=== PATIENT | female | born 1985 | race African-American/Black ===

== ENCOUNTER → 2022-12-20 | Outpatient (CLI) | payer OTHER ==
[~2022-12-20] MED LIST: GLUCAGON INJ 1MG VIAL As Ordered ONE; ISOVUE-370 76% 100ML VIAL As Ordered ONE; NEULUMEX 0.1% SUSPENSION 450ML BOTTLE (FORMERLY VOLUMEN) As Ordered ONE; PLEC3TAB PO
== END ==
LOC: M RAD 09:18
PROVIDERS: ATTEND Internal Medicine Gastroenterology
DX: D37.8 Neoplasm of uncertain behavior of other specified digestive organs (principal); D3A.012 Benign carcinoid tumor of the ileum; R93.89 Abnormal findings on diagnostic imaging of other specified body structures
CPT/HCPCS: 74177; J1610; Q9967

== ENCOUNTER 2022-12-29 07:08 | Day surgery (SDC) | payer OTHER ==
[~2022-12-29] VITALS: Ht 157.5 cm; Wt 69.3 kg
[~2022-12-29 07:08] MED LIST changes: -GLUCAGON INJ 1MG VIAL As Ordered ONE; -ISOVUE-370 76% 100ML VIAL As Ordered ONE; +LIDOCAINE 2% 100MG/5ML SDV (FOR ANES.) As Ordered ONE; -NEULUMEX 0.1% SUSPENSION 450ML BOTTLE (FORMERLY VOLUMEN) As Ordered ONE; +NS 1,000 ML IV ONE; +propofoL 200 MG/20 ML VIAL As Ordered ONE
[2022-12-29] MEDS ORDERED: propofoL 200 MG/20 ML VIAL As Ordered ONE (07:09)
[2022-12-29 08:41] VITALS: TEMP 97.9
[2022-12-29 09:12] VITALS: BP 106/59; O2SAT 100
== END 2022-12-29 09:18 | disposition home or self-care (01) ==
LOC: M OPP 07:08
PROVIDERS: ATTEND Internal Medicine Gastroenterology
DX: C7A.019 Malignant carcinoid tumor of the small intestine, unspecified portion (principal); D64.9 Anemia, unspecified; K21.9 Gastro-esophageal reflux disease without esophagitis; Z91.018 Allergy to other foods; Z79.899 Other long term (current) drug therapy

== ENCOUNTER 2023-03-22 08:31 | Inpatient (IN) | payer OTHER ==
[~2023-03-22] VITALS: Ht 157.5 cm; Wt 72.2 kg
[2023-03-22] VITALS (7 sets, daily range): BP systolic 108–121; BP diastolic 62–77; TEMP 97–97.9; O2SAT 95–98
[~2023-03-22 08:31] MED LIST changes: +ACETAMINOPHEN *IV* 1,000 MG in IV 0 EA IV ONE; +CelecoXIB 400 MG CAP PO ONE; +GABAPENTIN 300 MG CAP PO ONE; +HEPARIN SOD (PORCINE) 5000UNITS/ML 1ML VIAL/SYRINGE SQ ONE; +MIDAZOLAM INJ 2MG/2ML VIAL As Ordered ONE; -NS 1,000 ML IV ONE; +ONDANSETRON 4MG 2ML VIAL As Ordered ONE; +ROCURONIUM BROMIDE 50MG/5ML VIAL As Ordered ONE; +VITA1CAP25 PO; +ceFAZolin SOD 2 GM in IV 1 EA IV ONE; +fentaNYL 250 MCG/5 ML INJECTION As Ordered ONE; +metroNIDAZOLE 500 MG in IV 1 EA IV ONE
[2023-03-22] MEDS ORDERED: LR 1,000 ML IV SCH ×2 (08:50→12:40)
[2023-03-22] MEDS ORDERED: KETAMINE HCL 200MG/20ML VIAL As Ordered ONE (09:55)
[2023-03-22] MEDS ORDERED: dexmedeTOMIDine (4MCG/ML)200MCG/50ML BTL (PRECEDEX) As Ordered ONE (10:00)
[2023-03-22] MEDS ORDERED: ROCURONIUM BROMIDE 50MG/5ML VIAL As Ordered ONE (10:07)
[2023-03-22] MEDS ORDERED: ACETAMINOPHEN 1000MG 100ML IV BAG As Ordered ONE (10:07)
[2023-03-22] MEDS ORDERED: GLYCOPYRROLATE INJ 0.2 MG/ML 2 ML VIAL As Ordered ONE (10:27)
[2023-03-22] MEDS ORDERED: INDOCYANINE GREEN 25MG VIAL (IC-GREEN) As Ordered ONE (10:44)
[2023-03-22] MEDS ORDERED: HYDROmorphone HCL 2MG/ML 1ML VIAL As Ordered ONE (11:34)
[2023-03-22] MEDS ORDERED: SUGAMMADEX SODIUM 500 MG/5 ML VIAL (BRIDION) As Ordered ONE (12:01)
[2023-03-22] MEDS ORDERED: ONDANSETRON 4MG 2ML VIAL IV PRN ×2 (12:40→12:50)
[2023-03-22] MEDS ORDERED: PROMETHAZINE 25MG/ML 1ML VIAL IV PRN (12:50)
[2023-03-22] MEDS ORDERED: ACETAMINOPHEN TAB 650MG DOSE (2X325MG) PO PRN (12:50)
[2023-03-22] MEDS ORDERED: METOCLOPRAMIDE INJ 10MG/2ML VIAL IV PRN (12:50)
[2023-03-22] MEDS ORDERED: traMADol 50 MG TAB PO PRN (12:50)
[2023-03-22] MEDS: fentaNYL 100 MCG/2 ML INJECTION IV PRN ×4 (12:55→13:23)
[2023-03-22] MEDS: KETOROLAC 30 MG/ML 1ML VIAL IV SCH ×2 (13:55→20:14)
[2023-03-22] MEDS: KCL 20MEQ IN D5/0.45NS 1000ML 1,000 ML IV SCH (15:17)
[2023-03-22] MEDS ORDERED: MED REC IN PROGRESS XX SCH (15:30)
[2023-03-22] MEDS ORDERED: HOME MED LIST COMPLETE! XX SCH (15:40)
[2023-03-22] MEDS: FAMOTIDINE 20 MG TAB PO SCH (20:14)
[2023-03-23] VITALS (7 sets, daily range): BP systolic 105–123; BP diastolic 70–86; TEMP 97.3–99; O2SAT 96–99
[2023-03-23] MEDS: KETOROLAC 30 MG/ML 1ML VIAL IV SCH ×4 (02:06→20:15)
[2023-03-23] MEDS: KCL 20MEQ IN D5/0.45NS 1000ML 1,000 ML IV SCH (04:20)
[2023-03-23 06:25] LABS: BASO % 0.2 % (0.0-1.0); HEMATOCRIT 35.1 % (36.0-47.0); LYMPH # 0.9 10^3/uL (1.5-5.0); LYMPH % 7.7 % (24.0-44.0); MEAN CORPUSCULAR HEMOGLOBIN 29.3 pg (27.0-33.0); MEAN CORPUSCULAR HGB CONC 34.2 g/dl (32.0-36.5); MEAN CORPUSCULAR VOLUME 85.8 fl (80.0-96.0); MONO # 0.6 10^3/uL (0.0-0.8); MONO % 5.1 % (2.0-8.0); NEUTROPHILS # 10.4 10^3/uL (1.5-8.5); NEUTROPHILS % 86.7 % (36.0-66.0); PLATELET COUNT, AUTOMATED 197 10^3/uL (150-450); RED BLOOD COUNT 4.09 10^6/uL (4.00-5.40)
[2023-03-23 06:47] LABS: BLOOD UREA NITROGEN 6 MG/DL (9-23); CALCIUM LEVEL 8.3 MG/DL (8.5-10.1); CARBON DIOXIDE LEVEL 28 MMOL/L (20-31); CHLORIDE LEVEL 110 MMOL/L (98-107); CREATININE FOR GFR 0.58 MG/DL (0.55-1.30); GLOMERULAR FILTRATION RATE > 60.0 (>60); GLUCOSE, FASTING 100 MG/DL (60-100); POTASSIUM SERUM 4.3 MMOL/L (3.5-5.1); SODIUM LEVEL 143 MMOL/L (136-145)
[2023-03-23] MEDS: FAMOTIDINE 20 MG TAB PO SCH ×2 (08:53→20:15)
[2023-03-23] MEDS: ENOXAPARIN 40MG/0.4ML SYRINGE (J1650 PER 10MG) SC SCH (08:54)
[2023-03-23] MEDS: oxyCODONE 5MG TAB PO PRN ×2 (11:16→18:21)
[2023-03-24 02:11] VITALS: BP 113/73; TEMP 98.4; O2SAT 99
[2023-03-24] MEDS: KETOROLAC 30 MG/ML 1ML VIAL IV SCH ×2 (02:13→10:23)
[2023-03-24 06:10] VITALS: BP 121/78; TEMP 97.9; O2SAT 99
[2023-03-24] MEDS: ENOXAPARIN 40MG/0.4ML SYRINGE (J1650 PER 10MG) SC SCH (09:00)
[2023-03-24] MEDS ORDERED: HYDR-3713 PO ×2 (09:29→10:08)
[2023-03-24] MEDS: FAMOTIDINE 20 MG TAB PO SCH (10:24)
== END 2023-03-24 12:10 | disposition home or self-care (01) | DRG 331 ==
LOC: M OR 08:31 → M MS5PR 14:30
PROVIDERS: ADMIT Surgery; ATTEND Surgery
PROC: 0DTC4ZZ Resection of Ileocecal Valve, Percutaneous Endoscopic Approach (ICD-10-PCS; 2023-03-22)
PROC: 8E0W4CZ Robotic Assisted Procedure of Trunk Region, Percutaneous Endoscopic Approach (ICD-10-PCS; 2023-03-22)
PROC: 0DTB4ZZ Resection of Ileum, Percutaneous Endoscopic Approach (ICD-10-PCS; principal; 2023-03-22 10:30)
DX: C17.2 Malignant neoplasm of ileum (principal); D55.0 Anemia due to glucose-6-phosphate dehydrogenase [G6PD] deficiency; D57.3 Sickle-cell trait; Z91.010 Allergy to peanuts

== ENCOUNTER 2023-05-31 15:54 | Outpatient (CLI) | payer OTHER ==
[2023-05-31 14:15] VITALS: BP 122/74; O2SAT 100
[~2023-05-31 15:54] MED LIST changes: -ACETAMINOPHEN *IV* 1,000 MG in IV 0 EA IV ONE; -CelecoXIB 400 MG CAP PO ONE; +FOLI5INJ2 SC; -GABAPENTIN 300 MG CAP PO ONE; -HEPARIN SOD (PORCINE) 5000UNITS/ML 1ML VIAL/SYRINGE SQ ONE; +HYDR-3713 PO; -LIDOCAINE 2% 100MG/5ML SDV (FOR ANES.) As Ordered ONE; -MIDAZOLAM INJ 2MG/2ML VIAL As Ordered ONE; -ONDANSETRON 4MG 2ML VIAL As Ordered ONE; -ROCURONIUM BROMIDE 50MG/5ML VIAL As Ordered ONE; -ceFAZolin SOD 2 GM in IV 1 EA IV ONE; -fentaNYL 250 MCG/5 ML INJECTION As Ordered ONE; -metroNIDAZOLE 500 MG in IV 1 EA IV ONE; -propofoL 200 MG/20 ML VIAL As Ordered ONE
[2023-05-31] MEDS ORDERED: NS 1,000 ML IV SCH (16:00)
[2023-05-31] MEDS: diphenhydrAMINE 25MG CAP PO ONE (16:09)
[2023-05-31] MEDS: ACETAMINOPHEN TAB 650MG DOSE (2X325MG) PO ONE (16:09)
[2023-05-31] MEDS: dexAMETHasone 4 MG TAB PO ONE (16:10)
[2023-05-31] MEDS: FERRIC CARBOXYMALTOSE INJ 750 MG in NS 250 ML (>50kg) IV ONE (16:42)
[2023-05-31 17:45] VITALS: BP 124/78; O2SAT 100
== END 2023-05-31 16:00 ==
LOC: M INFU 15:54
PROVIDERS: ATTEND Specialist
DX: D50.9 Iron deficiency anemia, unspecified (principal)
CPT/HCPCS: 96365; J1439

== ENCOUNTER 2023-06-07 15:30 | Outpatient (CLI) | payer OTHER ==
[~2023-06-07] VITALS: Ht 157.5 cm; Wt 73.0 kg
[2023-06-07 15:35] VITALS: BP 126/73; O2SAT 100
[2023-06-07] MEDS: ACETAMINOPHEN TAB 650MG DOSE (2X325MG) PO ONE (15:41)
[2023-06-07] MEDS: dexAMETHasone 4 MG TAB PO ONE (15:41)
[2023-06-07] MEDS: diphenhydrAMINE 25MG CAP PO ONE (15:41)
[2023-06-07] MEDS: FERRIC CARBOXYMALTOSE INJ 750 MG in NS 250 ML (>50kg) IV ONE (16:00)
[2023-06-07 16:56] VITALS: BP 124/67; O2SAT 100
== END 2023-06-07 17:05 | disposition home or self-care (01) ==
LOC: M INFU 15:30
PROVIDERS: ATTEND Specialist
DX: D50.9 Iron deficiency anemia, unspecified (principal)
CPT/HCPCS: 96365; J1439

== ENCOUNTER 2023-11-14 06:14 | Inpatient (IN) | payer OTHER ==
[~2023-11-14] VITALS: Ht 157.5 cm; Wt 76.1 kg
[2023-11-14] VITALS (8 sets, daily range): BP systolic 100–112; BP diastolic 55–70; TEMP 98.5–99.8; O2SAT 96–99
[2023-11-14] MEDS ORDERED: LR 1,000 ML IV SCH (06:35)
[2023-11-14] MEDS ORDERED: IBUP200C25 PO (06:36)
[2023-11-14] MEDS ORDERED: TYLE650T38 PO (06:36)
[2023-11-14 07:01] LABS: HEMATOCRIT 36.1 % (36.0-47.0); HEMOGLOBIN 12.3 g/dl (12.0-15.5); MEAN CORPUSCULAR HEMOGLOBIN 28.6 pg (27.0-33.0); MEAN CORPUSCULAR HGB CONC 34.1 g/dl (32.0-36.5); PLATELET COUNT, AUTOMATED 210 10^3/uL (150-450); WHITE BLOOD COUNT 3.3 10^3/uL (4.0-10.0)
[2023-11-14] MEDS ORDERED: MIDAZOLAM INJ 2MG/2ML VIAL As Ordered ONE (07:08)
[2023-11-14] MEDS ORDERED: fentaNYL 100 MCG/2 ML INJECTION As Ordered ONE (07:08)
[2023-11-14] MEDS: VASOPRESSIN INJ 20UNITS/ML 1ML VIAL As Ordered ONE (07:08)
[2023-11-14] MEDS ORDERED: LIDOCAINE 2% 100MG/5ML SDV (FOR ANES.) As Ordered ONE (07:09)
[2023-11-14] MEDS ORDERED: ONDANSETRON 4MG 2ML VIAL As Ordered ONE (07:09)
[2023-11-14] MEDS ORDERED: ROCURONIUM BROMIDE 50MG/5ML VIAL As Ordered ONE (07:09)
[2023-11-14] MEDS ORDERED: SUGAMMADEX SODIUM 500 MG/5 ML VIAL (BRIDION) As Ordered ONE (07:09)
[2023-11-14] MEDS ORDERED: propofoL 200 MG/20 ML VIAL As Ordered ONE (07:09)
[2023-11-14] MEDS ORDERED: KETOROLAC 60MG 2ML VIAL As Ordered ONE (07:10)
[2023-11-14] MEDS ORDERED: ACETAMINOPHEN 1000MG 100ML IV BAG As Ordered ONE (07:10)
[2023-11-14 07:33] LABS: BLOOD UREA NITROGEN < 5 MG/DL (9-23); CARBON DIOXIDE LEVEL 29 MMOL/L (20-31); CHLORIDE LEVEL 110 MMOL/L (98-107); CREATININE FOR GFR 0.64 MG/DL (0.55-1.30); GLOMERULAR FILTRATION RATE > 60.0 (>60); GLUCOSE, FASTING 85 MG/DL (60-100); SODIUM LEVEL 140 MMOL/L (136-145)
[2023-11-14] MEDS: ceFAZolin SOD 2 GM in IV 1 EA IV ONE (07:45)
[2023-11-14] MEDS ORDERED: HYDROmorphone HCL 2MG/ML 1ML VIAL As Ordered ONE (08:11)
[2023-11-14] MEDS: FLUORESCEIN 10% (100MG/ML) 5ML VIAL As Ordered ONE (08:36)
[2023-11-14] MEDS: METHYLENE BLUE 0.5% (5MG/ML) 10 ML AMP (PROVAYBLUE) As Ordered ONE (08:36)
[2023-11-14] MEDS ORDERED: GLYCOPYRROLATE INJ 0.2 MG/ML 2 ML VIAL As Ordered ONE (08:56)
[2023-11-14] MEDS ORDERED: PERC5TAB12 PO (10:52)
[2023-11-14] MEDS ORDERED: fentaNYL 100 MCG/2 ML INJECTION IV PRN (11:20)
[2023-11-14] MEDS: oxyCODONE 5MG TAB PO PRN (11:38)
[2023-11-14] MEDS: ONDANSETRON 4MG 2ML VIAL IV PRN (11:39)
[2023-11-14] MEDS: MORPHINE 2 MG/ML 1ML VIAL IV PRN (11:39)
[2023-11-14] MEDS: SIMETHICONE 80MG CHEW TAB PO SCH (11:59)
[2023-11-14] MEDS: LR 1,000 ML IV SCH (13:30)
[2023-11-14] MEDS: PERCOCET 5MG/325MG TAB PO PRN (17:21)
[2023-11-14] MEDS: IBUPROFEN 800 MG TAB PO SCH (17:21)
[2023-11-15 04:00] VITALS: BP 113/65; TEMP 99.4; O2SAT 97
[2023-11-15 08:00] VITALS: BP 111/65; TEMP 99.3; O2SAT 98
[2023-11-15 12:00] VITALS: BP 110/63; TEMP 98.5; O2SAT 98
== END 2023-11-15 16:27 | disposition home or self-care (01) | DRG 743 ==
LOC: M OR 06:14 → M PED 13:12
PROVIDERS: ADMIT Obstetrics & Gynecology; ATTEND Obstetrics & Gynecology
PROC: 0UB94ZZ Excision of Uterus, Percutaneous Endoscopic Approach (ICD-10-PCS; principal; 2023-11-14 07:30)
PROC: 8E0W4CZ Robotic Assisted Procedure of Trunk Region, Percutaneous Endoscopic Approach (ICD-10-PCS; 2023-11-14 07:30)
DX: D25.9 Leiomyoma of uterus, unspecified (principal); D57.1 Sickle-cell disease without crisis; N85.2 Hypertrophy of uterus; N92.0 Excessive and frequent menstruation with regular cycle; Z79.899 Other long term (current) drug therapy; R10.2 Pelvic and perineal pain

== ENCOUNTER 2024-03-30 11:20 | Emergency (ER) | payer OTHER ==
[~2024-03-30] VITALS: Ht 177.8 cm; Wt 74.0 kg
[~2024-03-30 11:20] MED LIST changes: +IBUP200C25 PO; +PERC5TAB12 PO; +PHOS1TAB3 PO; +SUMA25TA3; +TYLE650T38 PO
[2024-03-30 11:23] VITALS: TEMP 97.7
[2024-03-30] MEDS: NS (Normal Saline) 0.9% 1,000 ML IV ONE (13:58)
[2024-03-30 14:38] LABS: ALKALINE PHOSPHATASE 73 U/L (35-104); ALT/SGPT 53 U/L (7.0-40); AST/SGOT 44 U/L (<34); BILIRUBIN,DIRECT 0.2 MG/DL (<0.4); BILIRUBIN,TOTAL 0.5 MG/DL (0.3-1.2); BLOOD UREA NITROGEN 7 MG/DL (9-23); CALCIUM LEVEL 8.3 MG/DL (8.5-10.1); CARBON DIOXIDE LEVEL 25 MMOL/L (20-31); CHLORIDE LEVEL 105 MMOL/L (98-107); CREATININE FOR GFR 0.64 MG/DL (0.55-1.30); GLOMERULAR FILTRATION RATE > 60.0 (>60); GLUCOSE, FASTING 77 MG/DL (60-100); LIPASE 37 U/L (12-53); POTASSIUM SERUM 3.8 MMOL/L (3.5-5.1); SODIUM LEVEL 140 MMOL/L (136-145); TOTAL PROTEIN 7.8 G/DL (5.7-8.2)
[2024-03-30 15:08] LABS: BASO % 0.6 % (0.0-1.0); EOS # 0.1 10^3/uL (0.0-0.5); EOS % 1.6 % (0.0-3.0); HEMATOCRIT 31.6 % (36.0-47.0); HEMOGLOBIN 9.7 g/dl (12.0-15.5); LYMPH # 1.3 10^3/uL (1.5-5.0); LYMPH % 24.3 % (24.0-44.0); MEAN CORPUSCULAR HEMOGLOBIN 21.1 pg (27.0-33.0); MEAN CORPUSCULAR HGB CONC 30.7 g/dl (32.0-36.5); MEAN CORPUSCULAR VOLUME 68.7 fl (80.0-96.0); MONO # 0.7 10^3/uL (0.0-0.8); MONO % 13.4 % (2.0-8.0); NEUTROPHILS # 3.1 10^3/uL (1.5-8.5); NEUTROPHILS % 59.7 % (36.0-66.0); PLATELET COUNT, AUTOMATED 180 10^3/uL (150-450); WHITE BLOOD COUNT 5.1 10^3/uL (4.0-10.0)
[2024-03-30 15:37] VITALS: BP 101/59; O2SAT 100
[2024-03-30] MEDS ORDERED: ONDA-282 PO (15:57)
[2024-03-30] MEDS: ONDANSETRON 4MG 2ML VIAL IV ONE (16:00)
== END 2024-03-30 16:05 | disposition home or self-care (01) ==
LOC: M ED 11:20
DX: R11.2 Nausea with vomiting, unspecified (principal); R19.7 Diarrhea, unspecified; D64.9 Anemia, unspecified; Z91.010 Allergy to peanuts; Z79.83 Long term (current) use of bisphosphonates; Z79.899 Other long term (current) drug therapy
CPT/HCPCS: 71046; 80048; 80076; 83690; 84702; 85025; 87486; 87581; 87633; 87798; 96374; 99284; J2405

== ENCOUNTER → 2024-04-04 | Outpatient (CLI) | payer OTHER ==
[~2024-04-04] MED LIST changes: +ONDA-282 PO
== END ==
LOC: M RAD 13:40
PROVIDERS: ATTEND Physician Assistant
DX: M54.9 Dorsalgia, unspecified (principal)

== ENCOUNTER → 2024-07-04 | Outpatient (REF) ==
[~2024-07-04] MED LIST changes: +K-PHTAB2 PO; +SOD250TA2
== END ==
LOC: M PLAIMG 10:39
PROVIDERS: ATTEND Internal Medicine
DX: R06.02 Shortness of breath (principal)